=== PATIENT | male | born 1965 | race Caucasian/White ===

== ENCOUNTER 2020-02-14 13:20 | Emergency (ER) | payer BC ==
[~2020-02-14] VITALS: Ht 167.6 cm; Wt 95.5 kg
[2020-02-14 13:22] VITALS: BP 162/77
[2020-02-14] MEDS ORDERED: PERM60CR4 TOP (13:37)
== END 2020-02-14 13:48 | disposition home or self-care (01) ==
LOC: ER 13:20
DX: B86 Scabies (principal); F17.200 Nicotine dependence, unspecified, uncomplicated; F12.90 Cannabis use, unspecified, uncomplicated
CPT/HCPCS: 99282; 99283

== ENCOUNTER 2020-02-16 14:55 | Emergency (ER) | payer BC ==
[~2020-02-16] VITALS: Ht 167.6 cm; Wt 102.0 kg
[~2020-02-16 14:55] MED LIST: PERM60CR4 TOP
[2020-02-16] MEDS ORDERED: KEN0.1O TP (15:41)
[2020-02-16] MEDS ORDERED: PRED20TA PO (15:41)
[2020-02-16 16:12] VITALS: BP 119/91
== END 2020-02-16 16:13 | disposition home or self-care (01) ==
LOC: ER 14:55
DX: R21 Rash and other nonspecific skin eruption (principal); F12.90 Cannabis use, unspecified, uncomplicated; Z72.89 Other problems related to lifestyle; Z79.899 Other long term (current) drug therapy
CPT/HCPCS: 99283

== ENCOUNTER 2022-04-16 09:30 | Emergency (ER) | payer MEDICARE, MEDICAID ==
[~2022-04-16] VITALS: Ht 170.2 cm; Wt 79.5 kg
[2022-04-16 09:39] VITALS: BP 160/95
[2022-04-16] MEDS ORDERED: LIDO700A32 TOP (11:04)
== END 2022-04-16 11:23 | disposition home or self-care (01) ==
LOC: ER 09:30
DX: S00.83XA Contusion of other part of head, initial encounter (principal); S20.219A Contusion of unspecified front wall of thorax, initial encounter; R22.0 Localized swelling, mass and lump, head; F12.90 Cannabis use, unspecified, uncomplicated; Z72.89 Other problems related to lifestyle; Z79.899 Other long term (current) drug therapy; Z79.2 Long term (current) use of antibiotics; Y04.0XXA Assault by unarmed brawl or fight, initial encounter; Y93.01 Activity, walking, marching and hiking; Y92.89 Other specified places as the place of occurrence of the external cause; Y99.8 Other external cause status
CPT/HCPCS: 71045; 99283